=== PATIENT | female | born 1980 | race Caucasian/White ===

== ENCOUNTER → 2017-02-14 | Outpatient (CLI) | payer BC, OTHER | LOC: FIMAGING 14:26 | PROVIDERS: ATTEND Obstetrics & Gynecology | DX: O09.522 Supervision of elderly multigravida, second trimester (principal); O34.219 Maternal care for unspecified type scar from previous cesarean delivery; O99.212 Obesity complicating pregnancy, second trimester; O23.42 Unspecified infection of urinary tract in pregnancy, second trimester; O99.342 Other mental disorders complicating pregnancy, second trimester; O99.512 Diseases of the respiratory system complicating pregnancy, second trimester; J45.909 Unspecified asthma, uncomplicated; Z3A.26 26 weeks gestation of pregnancy ==

== ENCOUNTER 2017-03-28 14:10 | Observation (INO) | payer BC ==
[2017-03-28 15:18] LABS: PLATELET COUNT 316 10^3/uL (150-400)
--- NOTE | 2017-03-28 17:24 | GCON ---
[f rep st] CONSULTATION OB TRIAGE NOTE. DATE OF CONSULTATION: 03/28/2017 DIAGNOSIS: Intrauterine at 33 weeks' gestation with a history of severe preeclampsia, HELL P syndrome, and headache, rule out preeclampsia. HISTORY OF PRESENT ILLNESS: Patient is a 36-year-old 2, para 0-1-0-1 at 33 weeks' gestation. She is a patient of Dr. Badillo at [facility]. She has a history of sever e preeclampsia and HELLP syndrome, delivered a G1 at 27 weeks' gestation, and she has been followed v aixa closely in this . Her has been complicated by a decrease in the size. Initial estimated weight on this baby was 94th percentile, most recent followup was dropped to the 14th, suspicious for growth restriction and possible preeclampsia. Today, she presented with hea dache and epigastric pain. The patient was in [place], and Dr. Badillo instructed her to come to us f or evaluation to rule out worsening preeclampsia. On evaluation, patient's blood pressures were all normal in the one teens over 60s to 80s. heart tones were 140s, reactive, moderate variability , category 1, and she had no obstetrical complaints. No contractions. Labs were normal for preeclam psia. White blood cell 11.13, hemoglobin 8.6, hematocrit 25.8, platelets 316. Chemistry: BUN is 6, creatinine 0.5, uric acid 4.3. AST 12, ALT 21, LDH 392. Her urine P:C ratio was normal of 0.036. P atient was discharged home with instructions to follow up with Dr. Badillo as previously scheduled, an d to call with any concerning symptoms for preeclampsia. /[id number]/MODL
== END 2017-03-28 16:31 | disposition home or self-care (01) ==
LOC: FLD 14:10
PROVIDERS: ADMIT Obstetrics & Gynecology; ATTEND Obstetrics & Gynecology
DX: O09.213 Supervision of pregnancy with history of pre-term labor, third trimester (principal); R51 Headache; R10.13 Epigastric pain; Z3A.33 33 weeks gestation of pregnancy
CPT/HCPCS: G0378 ×2